=== PATIENT | female | born 1970 | race Caucasian/White ===

== ENCOUNTER 2016-12-13 12:03 | Emergency (ER) | payer BC ==
--- NOTE | ~2016-12-13 | CT71 ---
[facility] A Service [facility] RADIOLOGY TEXT RESULTS PATIENT: NARGIS DUMONT LOCATION: [facility] : 68 UNIT #: [id number] AGE: [address]: Tristan Omer MD SEX: F ORDER DR: [id number] [place], [place] [address] [id number] MR#: [id number] Acc #: [id number] NAME: NARGIS DUMONT : 1970 SEX: F STUDY DATE/TIME: 12/13/2016 12:59 UNIT: [place] ROOM: STUDY DESCRIPTION: CT Head Wo Contrast Attending Physician: Tristan Omer M.D. Ordering Physician: Tristan Omer M.D. Primary Care Physician: Otf Campuzano M.D. MEDICAL IMAGING REPORT This report is preliminary unless electronic signature is present EXAM Head CT without HISTORY Migraine headache since morning of 12/13/2016. TECHNIQUE Routine noncontrast head CT is reviewed. COMPARISON STUDIES No comparison. FINDINGS There is some artifact from the patient's earrings. There is no displaced calvarial fracture. The mastoid air cells are clear. The visualized paranasal sinuses are clear. There is no evidence for acute intracranial hemorrhage or extraaxial fluid collection. Hopper-white junction is well-maintained. The ventricles are normal in size and configuration. The basilar cisterns are patent. There is some streak artifact on the lower images. No intracranial mass effect. IMPRESSION No acute intracranial abnormality. Dictated by... Mariela Pride M.D. THIS IS AN ELECTRONICALLY VERIFIED REPORT Mariela Pride M.D. at 12/13/2016 6:20 PM [facility] A Service [facility] RADIOLOGY TEXT RESULTS PATIENT: NARGIS DUMONT LOCATION: [facility] : 68 UNIT #: [id number] AGE: [address]: Tristan Omer MD SEX: F ORDER DR: Anna Marie TD: 12/13/2016 18:11 JOB #: [id number] MEDICAL IMAGING REPORT Page 1 of 1 COPY
[~2016-12-13 12:03] MED LIST: ADVIL COLD & SI1 TA1 PO; ALPRAZOLAM PO; FLAGYL PO; FLEXERIL10 MG PO; HYDROCODON-ACE1 EAC9 PO; IMITREX50 MG PO; IMODIUM2 MG PO; LIPITOR20 MG PO; LISINOPRIL-HCTZ1 T18 PO; PHENERGAN25 MG PO; ZANAFLEX4 M1 PO
[2016-12-13 12:23] LABS: BASOPHIL# 0.1 X10e3 (0-0.3); BASOPHIL% 0.6 % (0-2.5); EOSINOPHIL# 0.1 X10e3 (0-0.7); HEMATOCRIT 39.5 % (35.0-45.0); HEMOGLOBIN 13.1 gm/dL (12.0-16.0); LYMPHOCYTE# 2.3 X10e3 (1.0-3.5); LYMPHOCYTE% 16.2 % (17.0-45.0); MEAN CELL VOLUME 85.4 FL (83-96); MEAN CORPUSCULAR HEMOGLOBIN 28.3 PG (28-34); MEAN CORPUSCULAR HGB CONC 33.1 g/dL (30-36); MEAN PLATELET VOLUME 8.3 FL (6.5-11.5); MONOCYTE# 0.9 X10e3 (0-1.0); NEUTROPHIL# 10.9 X10e3 (1.5-7.1); NEUTROPHIL% 76.2 % (40-75); PLATELET COUNT 388 X10e3 (140-420); RED BLOOD COUNT 4.62 X10e (3.90-5.30); RED CELL DISTRIBUTION WIDTH 13.6 % (11.0-15.5); WHITE BLOOD COUNT 14.3 X10e3 (4.0-10.5)
[2016-12-13 12:24] LABS: DIFF IND NO
[2016-12-13 12:50] LABS: ALBUMIN SERUM 4.4 g/dL (3.5-5.0); BILIRUBIN, DIRECT 0.1 mg/dL (0.0-0.2); BILIRUBIN,INDIRECT 0.8 mg/dL (0.0-0.9); BILIRUBIN,TOTAL 0.9 mg/dL (0.2-2.0); BUN/CREATININE RATIO 25.55; CALCIUM SERUM 9.3 mg/dL (8.4-10.2); CREATININE SERUM 0.9 mg/dL (0.6-1.4); GLOM FILT RATE Estimated 76.2 mL/min (>60); POTASSIUM 3.6 mmol/L (3.5-5.1); PROTEIN TOTAL SERUM 7.8 g/dL (6.0-8.3)
[2016-12-13 12:51] LABS: PROTHROMBIN TIME (PATIENT) 10.6 SECONDS (9.6-11.5)
== END 2016-12-13 14:30 | disposition home or self-care (01) ==
LOC: CED 12:03
PROVIDERS: Emergency Medicine
DX: G43.909 Migraine, unspecified, not intractable, without status migrainosus (principal); I10 Essential (primary) hypertension; F17.200 Nicotine dependence, unspecified, uncomplicated
CPT/HCPCS: 36415; 70450; 80048; 80076; 85025; 85610; 96361; 96374; 96375; 99284; J0780; J1100; J1200

== ENCOUNTER → 2017-03-21 | Outpatient (CLI) | payer BC ==
--- NOTE | ~2017-03-21 | EKG ---
PATIENT: NARGIS DUMONT UNIT #: [id number] Ventricular Rate: 85 BPM Atrial Rate: 85 BPM P-R Interval: 156 ms QRS Duration: 74 ms Q-T Interval: 406 ms QTC Calculation(Bezet): 483 ms P Nursery: 42 degrees Calculated R Nursery: -8 degrees Calculated T Nursery: 24 degrees Diagnosis Line: Sinus rhythm with Fusion complexes Diagnosis Line: Possible Left atrial enlargement Diagnosis Line: Prolonged QT Diagnosis Line: Abnormal ECG Diagnosis Line: When compared with ECG of 20-JAN-2016 11:02, Diagnosis Line: Fusion complexes are now Present Diagnosis Line: Confirmed by JEAN PAUL MCDONNELL MD ([id number]) on Diagnosis Line: 03/22/2017 8:29:36 AM INTERPRETING MD: KECIA DOZIER
== END | disposition home or self-care (01) ==
LOC: CLAB 10:41
DX: I10 Essential (primary) hypertension (principal); E11.9 Type 2 diabetes mellitus without complications; I51.9 Heart disease, unspecified; Z87.891 Personal history of nicotine dependence
CPT/HCPCS: 36415; 84132; 93005